=== PATIENT | male | born 1960 | race Caucasian/White ===

== ENCOUNTER → 2019-05-17 | Outpatient (CLI) | payer BC ==
--- NOTE | 2019-05-17 16:52 | RAD ---
EXAM: Chest, 2 views. HISTORY: Cough. COMPARISON: 12/20/2014 FINDINGS: 2 views of the chest are obtained. There is no infiltrate, pleural effusion or pneumothorax. The heart is normal in size. IMPRESSION: No acute pulmonary finding. Electronically signed by: Roxanne Nguyen MD (05/17/2019 4:49 PM) [facility]
== END | disposition home or self-care (01) ==
LOC: PMG 15:53
PROVIDERS: ATTEND Physician Assistant
DX: R05 Cough (principal)
CPT/HCPCS: 71046